=== PATIENT | female | born 1985 | race Two or more races ===

== ENCOUNTER 2016-10-11 17:33 | Emergency (ER) | payer MEDICAID ==
[~2016-10-11] VITALS: Ht 160 cm; Wt 68.0 kg
[2016-10-11 18:43] LABS: Albumin 3.1 g/dL (3.4-5.0); BUN/Creatinine Ratio 14.3; Bilirubin, Total 0.2 mg/dL (0.2-1.0); Calcium 8.7 mg/dL (8.5-10.1); Potassium 3.9 mmol/L (3.5-5.1); Total Protein 7.3 g/dL (6.4-8.2)
[2016-10-11] MEDS ORDERED: SODIUM CHLORIDE 0.9% 1,000 ML IVB ONE (20:42)
[2016-10-11] MEDS ORDERED: HYDROmorphone HCL 2 MG/ML VL IV ONE (20:45)
[2016-10-11] MEDS ORDERED: ONDANSETRON HCL 4 MG/2 ML VIAL IV ONE (20:45)
[2016-10-11 20:49] LABS: Basophils # (auto) 0 uL; Basophils % (auto) 0.2 % (0.0-2.0); Eosinophils # (auto) 0.1 uL; Eosinophils % (auto) 0.6 % (0.0-7.0); Hemoglobin 12.2 g/dL (12.2-16.2); Lymphocytes # (auto) 3.1 uL; Lymphocytes % (auto) 29.3 % (10.0-50.0); Mean Corpuscular Hemoglobin 29.7 pg (28.0-32.0); Mean Corpuscular Hgb Conc. 33.9 g/dL (32.0-36.0); Mean Corpuscular Volume 87.8 fL (80.0-100.0); Mean Platelet Volume 8.8 fL (7.4-10.4); Monocytes # (auto) 0.4 uL; Monocytes % (auto) 4.2 % (0.0-12.0); Neutrophils # (auto) 6.9 uL; Neutrophils % (auto) 65.7 % (37.0-80.0); Platelet Count (auto) 324 10^3/uL (140-450); Red Cell Distribution Width 12.2 % (11.6-16.0); White Blood Cell 10.5 10^3/uL (4.4-10.8)
[2016-10-11 21:05] LABS: INR 0.91 (0.9-1.15); Partial Thromboplastin Time 25.7 sec (22.64-33.71); Prothrombin Time 9.8 sec (9.37-12.3)
[2016-10-11] MEDS ORDERED: ACETAMINOPHEN 325 MG TAB PO ONE (22:15)
[2016-10-11 22:22] LABS: Urine Bilirubin Negative (Negative); Urine Blood Negative /uL (Negative); Urine Color Yellow (Yellow); Urine Glucose Normal (Normal); Urine Ketone Negative (Negative); Urine Nitrite Negative (Negative); Urine RBC 1 /hpf (0 - 4); Urine Squamous Epithelial Cell FEW /hpf (<5); Urine Urobilinogen Normal (Negative); Urine pH 5.5 (5.0-8.0)
[2016-10-12 01:22] VITALS: BP 135/107
== END 2016-10-12 01:57 | disposition home or self-care (01) ==
LOC: ER 17:52
DX: O20.0 Threatened abortion (principal); Z3A.12 12 weeks gestation of pregnancy
CPT/HCPCS: 36415; 76801; 80053; 81001; 84702; 85025; 85610; 85730; 96360; 96361; 99285; J7030

== ENCOUNTER 2017-01-27 09:09 | Emergency (ER) | payer MEDICAID ==
[~2017-01-27] VITALS: Ht 160 cm; Wt 74.8 kg
[2017-01-27 09:24] VITALS: BP 146/94
[2017-01-27 10:19] LABS: Urine Bilirubin Negative (Negative); Urine Blood Negative /uL (Negative); Urine Color Yellow (Yellow); Urine Glucose Normal (Normal); Urine Ketone Negative (Negative); Urine Nitrite Negative (Negative); Urine RBC <1 /hpf (0 - 4); Urine Squamous Epithelial Cell FEW /hpf (<5); Urine Urobilinogen Normal (Negative)
[2017-01-27] MEDS ORDERED: ACETAMINOPHEN 325 MG TAB PO ONE (10:45)
[2017-01-27] MEDS ORDERED: ACETAMINOPHEN 500 MG TAB PO ONE (10:45)
== END 2017-01-27 11:34 | disposition home or self-care (01) ==
LOC: ER 09:09
DX: O26.892 Other specified pregnancy related conditions, second trimester (principal); N13.30 Unspecified hydronephrosis; Z3A.28 28 weeks gestation of pregnancy
CPT/HCPCS: 76775; 76805; 81001

== ENCOUNTER 2017-02-03 11:30 | Observation (INO) | payer MEDICAID ==
[~2017-02-03] VITALS: Ht 160 cm; Wt 81.6 kg
[2017-02-03] MEDS ORDERED: LABE200T18 PO (12:42)
[2017-02-03] MEDS ORDERED: PREN-129 OR (12:42)
[2017-02-03] MEDS ORDERED: LABETALOL HCL 200 MG TAB PO ONE (12:45)
[2017-02-03 13:48] LABS: Basophils # (auto) 0 uL; Basophils % (auto) 0.2 % (0.0-2.0); CONDITION Y; Eosinophils # (auto) 0 uL; Eosinophils % (auto) 0.3 % (0.0-7.0); Hematocrit 39.3 % (36.0-46.0); Hemoglobin 13.2 g/dL (12.2-16.2); Lymphocytes # (auto) 2.7 uL; Lymphocytes % (auto) 24.5 % (10.0-50.0); Mean Corpuscular Hemoglobin 29.9 pg (28.0-32.0); Mean Corpuscular Hgb Conc. 33.7 g/dL (32.0-36.0); Mean Corpuscular Volume 88.7 fL (80.0-100.0); Mean Platelet Volume 9.1 fL (7.4-10.4); Monocytes # (auto) 0.5 uL; Monocytes % (auto) 4.5 % (0.0-12.0); Neutrophils # (auto) 7.7 uL; Neutrophils % (auto) 70.5 % (37.0-80.0); Platelet Count (auto) 309 10^3/uL (140-450); Red Cell Distribution Width 13.8 % (11.6-16.0); White Blood Cell 10.9 10^3/uL (4.4-10.8)
[2017-02-03 14:08] LABS: INR 0.87 (0.9-1.15); Partial Thromboplastin Time 26.3 sec (22.64-33.71); Prothrombin Time 9.5 sec (9.37-12.3)
[2017-02-03 14:10] LABS: Urine Bilirubin Negative (Negative); Urine Blood Negative /uL (Negative); Urine Color Yellow (Yellow); Urine Glucose Normal (Normal); Urine Ketone Negative (Negative); Urine Nitrite Negative (Negative); Urine RBC <1 /hpf (0 - 4); Urine Squamous Epithelial Cell FEW /hpf (<5); Urine Urobilinogen Normal (Negative)
[2017-02-03 14:10] LABS: Albumin 2.7 g/dL (3.4-5.0); Bilirubin, Total 0.2 mg/dL (0.2-1.0); Calcium 9.3 mg/dL (8.5-10.1); Total Protein 7.4 g/dL (6.4-8.2); Uric Acid 4.8 mg/dL (2.6-6.0)
[2017-02-03] MEDS ORDERED: BETAMETHASONE ACET (6MG/ML) 5ML VIAL IM SCH (14:30)
[2017-02-03] MEDS ORDERED: LABETALOL HCL 200 MG TAB PO SCH (22:00)
== END 2017-02-03 15:25 | disposition home or self-care (01) | DRG 566 ==
LOC: LDRP 11:30
PROVIDERS: ADMIT Specialist; ATTEND Specialist
DX: O13.3 Gestational [pregnancy-induced] hypertension without significant proteinuria, third trimester (principal); Z3A.29 29 weeks gestation of pregnancy
CPT/HCPCS: 36415; 59025; 76818; 80053; 81001; 81002; 84550; 85025; 85362; 85379; 85610; 85730; 96372; G0378; J0702

== ENCOUNTER 2017-02-04 13:50 | Observation (INO) | payer MEDICAID ==
[~2017-02-04] VITALS: Ht 160 cm; Wt 77.6 kg
[~2017-02-04 13:50] MED LIST: LABE200T18 PO; PREN-129 OR
[2017-02-04] MEDS ORDERED: BETAMETHASONE ACET (6MG/ML) 5ML VIAL IM ONE (14:30)
== END 2017-02-04 15:05 | disposition home or self-care (01) | DRG 566 ==
LOC: LDRP 13:50
PROVIDERS: ADMIT Specialist; ATTEND Specialist
DX: O13.3 Gestational [pregnancy-induced] hypertension without significant proteinuria, third trimester (principal); Z3A.29 29 weeks gestation of pregnancy
CPT/HCPCS: 59025; 81002; 96372; G0378

== ENCOUNTER 2017-02-05 09:30 | Observation (INO) | payer MEDICAID ==
[~2017-02-05] VITALS: Ht 30.5 cm; Wt 0.5 kg
[2017-02-05] MEDS ORDERED: MAGNESIUM SULFATE 40MG/ML 1,000 ML IV ONE (11:21)
[2017-02-05] MEDS ORDERED: MAGNESIUM SULFATE 40MG/ML 1,000 ML IV SCH (11:30)
== END 2017-02-05 15:05 | disposition short-term general hospital (02) | DRG 566 ==
LOC: LDRP 09:30
PROVIDERS: ADMIT Specialist; ATTEND Specialist
DX: O14.13 Severe pre-eclampsia, third trimester (principal); O26.893 Other specified pregnancy related conditions, third trimester; R51 Headache; Z3A.29 29 weeks gestation of pregnancy
CPT/HCPCS: 36415; 59025; 76818; 81002; 83735; 84156; 96365; 96366; G0378; J3475

== ENCOUNTER 2019-05-08 14:41 | Emergency (ER) | payer SELFPAY ==
[~2019-05-08] VITALS: Ht 160 cm; Wt 64.4 kg
[2019-05-08 17:10] VITALS: BP 130/86
== END 2019-05-08 17:16 | disposition home or self-care (01) ==
LOC: ER 14:46
DX: H66.91 Otitis media, unspecified, right ear (principal); I10 Essential (primary) hypertension

== ENCOUNTER 2020-09-05 11:00 | Observation (INO) | payer MEDICAID ==
[~2020-09-05 11:00] MED LIST changes: -LABE200T18 PO; +LABE200T7 PO
[2020-09-05] MEDS ORDERED: BETAMETHASONE ACET (6MG/ML) 5ML VIAL IM ONE (11:15)
[2020-09-05 11:40] LABS: Basophils # (auto) 0 10 ^3/uL (0-0.2); Basophils % (auto) 0.2 % (0.0-2.0); Eosinophils # (auto) 0 10 ^3/uL (0-0.8); Eosinophils % (auto) 0.5 % (0.0-7.0); Hematocrit 35.6 % (36.0-46.0); Hemoglobin 12.5 g/dL (12.2-16.2); Lymphocytes # (auto) 2.3 10 ^3/uL (0.4-5.4); Mean Corpuscular Hemoglobin 30.5 pg (28.0-32.0); Mean Corpuscular Hgb Conc. 35.2 g/dL (32.0-36.0); Mean Corpuscular Volume 86.6 fL (80.0-100.0); Monocytes # (auto) 0.6 10 ^3/uL (0-1.3); Monocytes % (auto) 6.1 % (0.0-12.0); Neutrophils % (auto) 70.2 % (37.0-80.0); Nucleated Red Blood Cells % 0.1 %; Platelet Count (auto) 262 10^3/uL (140-450); Red Blood Cells 4.11 10^6/uL (4.0-5.20); Red Cell Distribution Width 13.3 % (11.8-14.3); White Blood Cell 9.9 10^3/uL (4.4-10.8)
[2020-09-05 12:01] LABS: INR 0.93 (0.9-1.15)
[2020-09-05 12:32] LABS: Albumin 2.7 g/dL (3.4-5.0); BUN/Creatinine Ratio 11.7; Calcium 9.3 mg/dL (8.5-10.1); Potassium 3.9 mmol/L (3.5-5.1); Uric Acid 3.4 mg/dL (2.6-6.0)
[2020-09-05 12:35] LABS: Bilirubin, Total 0.1 mg/dL (0.2-1.0); Total Protein 6.8 g/dL (6.4-8.2)
[2020-09-05 12:38] LABS: Urine Bacteria NONE SEEN /hpf (None Seen); Urine Blood Negative /uL (Negative); Urine Specific Gravity 1.005 (1.001-1.035); Urine WBC <1 /hpf (0 - 5)
[2020-09-05 12:40] LABS: Alcohol, Urine < 3.0 mg/dL (0-10); Amphetamine Screen, Urine NEGATIVE (NEGATIVE); Barbiturate Scree,Urine NEGATIVE (NEGATIVE); Benzodiazephine Screen, Urine NEGATIVE (NEGATIVE); Cannabinoid Screen, Urine NEGATIVE (NEGATIVE); Cocaine Screen, Urine NEGATIVE (NEGATIVE); Opiate Scree,Urine NEGATIVE (NEGATIVE); Phencyclidine Screen, Urine NEGATIVE (NEGATIVE)
[2020-09-05 12:41] LABS: Protein, Urine 12.2 mg/dL (0.0-11.9)
== END 2020-09-05 13:19 | disposition home or self-care (01) ==
LOC: LDRP 11:00
PROVIDERS: ADMIT Specialist; ATTEND Specialist
DX: O13.2 Gestational [pregnancy-induced] hypertension without significant proteinuria, second trimester (principal); Z3A.26 26 weeks gestation of pregnancy; Z79.899 Other long term (current) drug therapy
CPT/HCPCS: 36415; 59025; 80053; 80307; 81001; 81002; 82570; 84156; 84550; 85025; 85384; 85610; 85730; 96372; G0378; J0702

== ENCOUNTER 2020-09-06 11:25 | Observation (INO) | payer MEDICAID ==
[~2020-09-06] VITALS: Ht 30.5 cm; Wt 0.5 kg
[2020-09-06] MEDS ORDERED: BETAMETHASONE ACET (30mg/5ml) 5ml Vial 6mg/ml IM ONE (12:15)
[2020-09-06 12:52] LABS: Protein, Urine 20.6 mg/dL (0.0-11.9)
[2020-09-06 12:58] LABS: 24 Hr. Total Protein, Urine 813.7 mg/24 Hr (<149.1)
[2020-09-06 14:07] LABS: Protein, Urine 85.5 mg/dL (0.0-11.9)
== END 2020-09-06 13:55 | disposition home or self-care (01) ==
LOC: LDRP 11:25
PROVIDERS: ADMIT Specialist; ATTEND Specialist
DX: O13.2 Gestational [pregnancy-induced] hypertension without significant proteinuria, second trimester (principal); Z3A.26 26 weeks gestation of pregnancy
CPT/HCPCS: 59025; 81002; 82570; 84156; 96372; G0378; J0702

== ENCOUNTER 2020-09-09 14:55 | Observation (INO) | payer MEDICAID | END 2020-09-09 16:20 | disposition home or self-care (01) | LOC: LDRP 14:55 | PROVIDERS: ADMIT Specialist; ATTEND Specialist | DX: O60.02 Preterm labor without delivery, second trimester (principal); Z87.59 Personal history of other complications of pregnancy, childbirth and the puerperium; Z3A.27 27 weeks gestation of pregnancy | CPT/HCPCS: 59025; 81002; 94760; G0378 ==

== ENCOUNTER 2020-09-12 15:00 | Observation (INO) | payer MEDICAID ==
[~2020-09-12] VITALS: Ht 160 cm; Wt 77.1 kg
[~2020-09-12 15:00] MED LIST changes: -LABE200T7 PO
== END 2020-09-12 17:00 | disposition home or self-care (01) ==
LOC: LDRP 15:00
PROVIDERS: ADMIT Obstetrics & Gynecology; ATTEND Obstetrics & Gynecology
DX: O60.02 Preterm labor without delivery, second trimester (principal); Z3A.27 27 weeks gestation of pregnancy; Z87.51 Personal history of pre-term labor; Z87.59 Personal history of other complications of pregnancy, childbirth and the puerperium
CPT/HCPCS: 59025; 81002; G0378

== ENCOUNTER 2020-09-16 14:50 | Observation (INO) | payer MEDICAID ==
[2020-09-16 17:05] LABS: Basophils # (auto) 0 10 ^3/uL (0-0.2); Basophils % (auto) 0.1 % (0.0-2.0); Eosinophils # (auto) 0.1 10 ^3/uL (0-0.8); Eosinophils % (auto) 0.6 % (0.0-7.0); Hematocrit 37.2 % (36.0-46.0); Hemoglobin 12.7 g/dL (12.2-16.2); Lymphocytes # (auto) 2.9 10 ^3/uL (0.4-5.4); Lymphocytes % (auto) 22.8 % (10.0-50.0); Mean Corpuscular Hemoglobin 30.3 pg (28.0-32.0); Mean Corpuscular Hgb Conc. 34.2 g/dL (32.0-36.0); Mean Corpuscular Volume 88.5 fL (80.0-100.0); Monocytes # (auto) 0.8 10 ^3/uL (0-1.3); Monocytes % (auto) 6.2 % (0.0-12.0); Neutrophils # (auto) 8.9 10 ^3/uL (1.6-8.6); Neutrophils % (auto) 70.3 % (37.0-80.0); Nucleated Red Blood Cells % 0.1 %; Platelet Count (auto) 283 10^3/uL (140-450); Red Cell Distribution Width 13.3 % (11.8-14.3); White Blood Cell 12.7 10^3/uL (4.4-10.8)
[2020-09-16 17:07] LABS: Urine Bacteria NONE SEEN /hpf (None Seen); Urine Blood Negative /uL (Negative); Urine Specific Gravity 1.006 (1.001-1.035); Urine WBC <1 /hpf (0 - 5)
[2020-09-16 17:21] LABS: Alcohol, Urine < 3.0 mg/dL (0-10); Amphetamine Screen, Urine NEGATIVE (NEGATIVE); Barbiturate Scree,Urine NEGATIVE (NEGATIVE); Benzodiazephine Screen, Urine NEGATIVE (NEGATIVE); Cannabinoid Screen, Urine NEGATIVE (NEGATIVE); Cocaine Screen, Urine NEGATIVE (NEGATIVE); Opiate Scree,Urine NEGATIVE (NEGATIVE); Phencyclidine Screen, Urine NEGATIVE (NEGATIVE)
[2020-09-16 17:22] LABS: Potassium 4.3 mmol/L (3.5-5.1)
[2020-09-16 17:32] LABS: INR 0.92 (0.9-1.15); Partial Thromboplastin Time 24.5 sec (23.0-31.2)
[2020-09-16 17:40] LABS: Albumin 2.6 g/dL (3.4-5.0); BUN/Creatinine Ratio 15.4; Bilirubin, Total 0.3 mg/dL (0.2-1.0); Calcium 8.6 mg/dL (8.5-10.1); Total Protein 6.9 g/dL (6.4-8.2); Uric Acid 3.1 mg/dL (2.6-6.0)
== END 2020-09-16 16:47 | disposition home or self-care (01) ==
LOC: LDRP 14:50
PROVIDERS: ADMIT Specialist; ATTEND Specialist
DX: O13.3 Gestational [pregnancy-induced] hypertension without significant proteinuria, third trimester (principal); O09.213 Supervision of pregnancy with history of pre-term labor, third trimester; Z3A.28 28 weeks gestation of pregnancy
CPT/HCPCS: 36415; 59025; 80053; 80307; 81001; 81002; 84550; 85025; 85610; 85730; G0378

== ENCOUNTER 2020-09-20 12:20 | Observation (INO) | payer MEDICAID ==
[2020-09-20 13:19] LABS: Protein, Urine 12.9 mg/dL (0.0-11.9)
[2020-09-20 13:20] LABS: 24 Hr. Total Protein, Urine 399.9 mg/24 Hr (<149.1)
== END 2020-09-20 14:40 | disposition home or self-care (01) ==
LOC: LDRP 12:20
PROVIDERS: ADMIT Specialist; ATTEND Specialist
DX: O09.213 Supervision of pregnancy with history of pre-term labor, third trimester (principal); O09.293 Supervision of pregnancy with other poor reproductive or obstetric history, third trimester; Z3A.28 28 weeks gestation of pregnancy
CPT/HCPCS: 59025; 81002; 82570; 84156; 94760; G0378

== ENCOUNTER 2020-09-23 10:23 | Observation (INO) | payer MEDICAID | END 2020-09-23 17:15 | disposition home or self-care (01) | LOC: LDRP 14:25 | PROVIDERS: ADMIT Specialist; ATTEND Specialist | DX: O13.3 Gestational [pregnancy-induced] hypertension without significant proteinuria, third trimester (principal); O60.03 Preterm labor without delivery, third trimester; O09.293 Supervision of pregnancy with other poor reproductive or obstetric history, third trimester; Z3A.29 29 weeks gestation of pregnancy | CPT/HCPCS: 59025; 76818; 81002; 94760; G0378 ==

== ENCOUNTER 2020-09-26 12:49 | Observation (INO) | payer MEDICAID | END 2020-09-26 14:51 | disposition home or self-care (01) | LOC: LDRP 12:49 | PROVIDERS: ADMIT Obstetrics & Gynecology; ATTEND Obstetrics & Gynecology | DX: Z34.83 Encounter for supervision of other normal pregnancy, third trimester (principal); Z87.51 Personal history of pre-term labor; Z87.59 Personal history of other complications of pregnancy, childbirth and the puerperium; Z3A.29 29 weeks gestation of pregnancy | CPT/HCPCS: 59025; 76817; 76818; 81002; 94760; G0378 ==

== ENCOUNTER 2020-09-29 05:25 | Observation (INO) | payer MEDICAID ==
[~2020-09-29] VITALS: Ht 160 cm; Wt 77.1 kg
[2020-09-29] MEDS ORDERED: PREN-96 PO (09:17)
[2020-09-29 09:47] LABS: 24 Hr. Total Protein, Urine 604.2 mg/24 Hr (<149.1)
[2020-09-29 09:47] LABS: Protein, Urine 18.7 mg/dL (0.0-11.9)
== END 2020-09-29 10:24 | disposition home or self-care (01) ==
LOC: LDRP 05:25
PROVIDERS: ADMIT Specialist; ATTEND Specialist
DX: O13.3 Gestational [pregnancy-induced] hypertension without significant proteinuria, third trimester (principal); O14.93 Unspecified pre-eclampsia, third trimester; Z3A.30 30 weeks gestation of pregnancy
CPT/HCPCS: 59025; 76818; 81002; 82570; 84156; 94760; G0378

== ENCOUNTER 2020-10-01 10:07 | Observation (INO) | payer MEDICAID ==
[~2020-10-01 10:07] MED LIST changes: -PREN-129 OR; +PREN-96 PO
== END 2020-10-01 21:12 | disposition home or self-care (01) ==
LOC: LDRP 18:55
PROVIDERS: ADMIT Obstetrics & Gynecology; ATTEND Obstetrics & Gynecology
DX: O13.3 Gestational [pregnancy-induced] hypertension without significant proteinuria, third trimester (principal); Z3A.30 30 weeks gestation of pregnancy
CPT/HCPCS: 59025; 76817; 76818; 81002; G0378

== ENCOUNTER 2020-10-03 18:58 | Observation (INO) | payer MEDICAID | END 2020-10-03 21:06 | disposition home or self-care (01) | LOC: LDRP 18:58 | PROVIDERS: ADMIT Specialist; ATTEND Specialist | DX: O13.3 Gestational [pregnancy-induced] hypertension without significant proteinuria, third trimester (principal); Z3A.30 30 weeks gestation of pregnancy | CPT/HCPCS: 59025; 76818; 81002; G0378 ==

== ENCOUNTER 2020-10-07 09:17 | Observation (INO) | payer MEDICAID ==
[2020-10-07 11:08] LABS: Basophils # (auto) 0 10 ^3/uL (0-0.2); Basophils % (auto) 0.2 % (0.0-2.0); Eosinophils # (auto) 0 10 ^3/uL (0-0.8); Eosinophils % (auto) 0.4 % (0.0-7.0); Hematocrit 39.9 % (36.0-46.0); Hemoglobin 13.5 g/dL (12.2-16.2); Lymphocytes # (auto) 2.2 10 ^3/uL (0.4-5.4); Lymphocytes % (auto) 21.1 % (10.0-50.0); Mean Corpuscular Hgb Conc. 33.9 g/dL (32.0-36.0); Mean Corpuscular Volume 88.5 fL (80.0-100.0); Monocytes # (auto) 0.5 10 ^3/uL (0-1.3); Monocytes % (auto) 5.1 % (0.0-12.0); Neutrophils # (auto) 7.6 10 ^3/uL (1.6-8.6); Neutrophils % (auto) 73.2 % (37.0-80.0); Nucleated Red Blood Cells % 0.1 %; Platelet Count (auto) 272 10^3/uL (140-450); Red Cell Distribution Width 13.7 % (11.8-14.3); White Blood Cell 10.4 10^3/uL (4.4-10.8)
[2020-10-07 11:25] LABS: INR 0.9 (0.9-1.15); Partial Thromboplastin Time 24.7 sec (23.0-31.2)
[2020-10-07 11:30] LABS: Urine Bacteria NONE SEEN /hpf (None Seen); Urine Blood Negative /uL (Negative); Urine Hyaline Cast FEW /lpf (0 - 2); Urine Specific Gravity 1.008 (1.001-1.035); Urine WBC 2 /hpf (0 - 5)
[2020-10-07 11:32] LABS: Albumin 2.4 g/dL (3.4-5.0); Calcium 8.7 mg/dL (8.5-10.1); Potassium 3.9 mmol/L (3.5-5.1)
[2020-10-07 11:37] LABS: BUN/Creatinine Ratio 12.9; Bilirubin, Total 0.2 mg/dL (0.2-1.0); Uric Acid 4.3 mg/dL (2.6-6.0)
[2020-10-07 11:44] LABS: Protein, Urine 60.8 mg/dL (0.0-11.9)
== END 2020-10-07 11:40 | disposition home or self-care (01) ==
LOC: LDRP 09:17
PROVIDERS: ADMIT Specialist; ATTEND Specialist
DX: O13.3 Gestational [pregnancy-induced] hypertension without significant proteinuria, third trimester (principal); Z3A.31 31 weeks gestation of pregnancy
CPT/HCPCS: 36415; 59025; 76818; 80053; 81001; 81002; 82570; 84156; 84550; 85025; 85610; 85730; G0378

== ENCOUNTER 2020-10-09 09:36 | Observation (INO) | payer MEDICAID ==
[2020-10-10 08:18] LABS: Protein, Urine 35.1 mg/dL (0.0-11.9)
[2020-10-10 09:19] LABS: 24 Hr. Total Protein, Urine 1084.5 mg/24 Hr (<149.1)
[2020-10-10 10:09] LABS: Creatinine Clearance, Urine 134.5 mL/min (75-115)
[2020-10-10 10:19] LABS: Urine Bacteria NONE SEEN /hpf (None Seen); Urine Blood Negative /uL (Negative); Urine Specific Gravity 1.004 (1.001-1.035); Urine WBC <1 /hpf (0 - 5)
[2020-10-10 14:41] LABS: Creatinine Clearance, Urine 134.5 mL/min (75-115)
== END 2020-10-10 11:00 | disposition home or self-care (01) ==
LOC: LDRP 10-10 07:20
PROVIDERS: ADMIT Obstetrics & Gynecology; ATTEND Obstetrics & Gynecology
DX: O13.3 Gestational [pregnancy-induced] hypertension without significant proteinuria, third trimester (principal); Z3A.31 31 weeks gestation of pregnancy
CPT/HCPCS: 59025; 81001; 81002; 82570; 82575; 84156; G0378

== ENCOUNTER 2022-02-05 17:39 | Emergency (ER) | payer MEDICAID ==
[~2022-02-05] VITALS: Ht 160 cm; Wt 68.1 kg
[2022-02-05 18:30] VITALS: BP 144/93
[2022-02-05] MEDS ORDERED: AMOX500C2 PO (19:09)
== END 2022-02-05 19:35 | disposition home or self-care (01) ==
LOC: ER 17:42
DX: S01.511A Laceration without foreign body of lip, initial encounter (principal); I10 Essential (primary) hypertension; Z79.899 Other long term (current) drug therapy; W21.03XA Struck by baseball, initial encounter; Y93.64 Activity, baseball; Y92.89 Other specified places as the place of occurrence of the external cause; Y99.8 Other external cause status
CPT/HCPCS: 12011

== ENCOUNTER → 2024-06-05 | Outpatient (CLI) | payer MEDICAID ==
[~2024-06-05] VITALS: Ht 160 cm; Wt 68.0 kg
[~2024-06-05] MED LIST changes: +AMOX500C2 PO
[2024-06-05] MEDS: REGADENOSON 0.4 MG/5 ML SYRG IV ONE ×2 (10:34→10:42)
--- NOTE | 2024-06-11 12:24 | DVHSR ---
APPROVED REPORT Exam: Nuclear Stress Test Indication: CHEST PAIN BMI: 0 Medical History Medical History: HTN, UTERINE FIBROID, OVARIAN CYST Stress Test Details Stress Test: Pharmacologic stress testing performed using 0.4 mg of regadenoson per 5 mL given IV ov er 10 seconds. HR Resting HR: 73 bpmMax Heart Rate (APMHR): 182.970534 bpm Max HR Achieved: 115 bpmTarget HR (85% APMHR): 154.769386 bpm % of APMHR: 63.19 Recovery HR: 86 bpm BP Resting BP: 129/91 mmHg Recovery BP: 118/95 mmHg ECG Resting ECG: Sinus Rhythm Clinical Reason for Termination: Completed protocol Stress ECG Conclusion lvef 60% anterior wall image artifact limited image quality no severe stress induced ischmiea noted ecg is SR and normal axis NM EXAM: Myocardial Perfusion REST/STRESS Imaging Protocol: Rest Tc-99m/Stress Tc-99m 1 day Resting Data Rest SPECT myocardial perfusion imaging was performed in supine position 60 minutes following the int ravenous injection of 12.4 mCi of Tc-99m Sestamibi. Time of rest injection: 0938 Time of rest imagin Administration Route: IV Administration Site: Right AC Pharmacologic Stress Pharmacologic stress test was performed by injecting Regadenoson 0.4 mg IV push followed by the intra venous injection of 32.8 mCi of Tc-99m Sestamibi. Time of stress injection: 1036 Time of stress imagin Administration Route: IV Administration Site: Right AC Gated Stress SPECT was performed 60 minutes after stress injection. The images were gated to evaluate regional wall motion and calculate left ventricular ejection fracti on. Stress only was performed in the Supine position. Nuclear Conclusion lvef 60% anterior wall image artifact limited image quality no severe stress induced ischmiea noted ecg is SR and normal axis
== END | disposition home or self-care (01) ==
LOC: XYW 08:51
PROVIDERS: ATTEND Internal Medicine
DX: I10 Essential (primary) hypertension (principal); D25.9 Leiomyoma of uterus, unspecified; N83.209 Unspecified ovarian cyst, unspecified side; R07.9 Chest pain, unspecified; R06.02 Shortness of breath; Z68.27 Body mass index [BMI] 27.0-27.9, adult
CPT/HCPCS: 93017; J2785; 78452